=== PATIENT | female | born 2000 | race Caucasian/White ===

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

== ENCOUNTER 2023-10-16 17:03 | Emergency (ER) | payer BC ==
[~2023-10-16] VITALS: Ht 167.6 cm; Wt 72.6 kg
[~2023-10-16 17:03] MED LIST: 'CIPRO500 M1 PO; B12,B-12,B 12500 MC1 PO; VITAMIN D5000 UNI1 PO
[2023-10-16 17:09] VITALS: BP 138/79
[2023-10-16] MEDS ORDERED: Ketorolac Tromethamine 15 MG/ML VIAL IV ONE (17:15)
[2023-10-16] MEDS ORDERED: SODIUM CHLORIDE 0.9% 1,000 ML IV ONE (17:15)
[2023-10-16 17:28] LABS: BASO # 0.1 10*3/uL (0.0-0.1); BASO % 0.6 % (0.0-1.0); EOS # 0.1 10*3/uL (0.0-0.4); HEMATOCRIT 39.1 % (37.0-47.0); LYMPH # 3.4 10*3/uL (1.3-4.4); LYMPH % 34.9 % (27.0-41.0); MEAN CELL VOLUME 88.5 fl (81.0-99.0); MEAN CORPUSCULAR HGB CONC 32.7 g/dl (33.0-37.0); MONO # 0.7 10*3/uL (0.1-1.0); MONO % 7.5 % (3.0-9.0); NEUT # 5.5 10*3/uL (2.3-7.9); NEUT % 55.6 % (47.0-73.0); PLATELET COUNT AUTOMATED 275 10*3/uL (130-400); RED BLOOD COUNT 4.42 10*6/uL (4.10-5.10); WHITE BLOOD COUNT 9.9 10*3/uL (4.8-10.8)
[2023-10-16 17:49] LABS: ALKALINE PHOSPHATASE 79 U/L (46-116); BUN 8 mg/dl (9-23); CHLORIDE 104 mmol/L (98-107); POTASSIUM 3.9 mmol/L (3.4-5.1); SGPT/ALT 10 U/L (5-49); TOTAL PROTEIN 6.9 gm/dL (6.0-8.0)
[2023-10-16] MEDS ORDERED: MELOXICAM15 MG PO (18:00)
[2023-10-16] MEDS ORDERED: VISTARIL25 MG PO (18:00)
[2023-10-16] MEDS ORDERED: PEPCID20 MG PO (18:00)
== END 2023-10-16 18:03 | disposition home or self-care (01) ==
LOC: ED 17:03
PROVIDERS: Emergency Medicine
DX: R07.89 Other chest pain (principal); Z79.899 Other long term (current) drug therapy; Z79.2 Long term (current) use of antibiotics